=== PATIENT | male | born 1955 | race Two or more races ===

== ENCOUNTER 2020-11-19 13:43 | Emergency (ER) | payer MEDICARE, OTHER ==
[~2020-11-19] VITALS: Ht 188 cm; Wt 109.0 kg
[2020-11-19] MEDS ORDERED: MORPHINE SULFATE 4 MG/ML CPJ (NOT FOR IM USE) IV STA (15:54)
[2020-11-19] MEDS ORDERED: ONDANSETRON HCL 4MG/2ML INJ IV STA (15:54)
[2020-11-19] MEDS ORDERED: SODIUM CHLORIDE 0.9% 1,000 ML IV ONE (16:00)
[2020-11-19 16:23] LABS: CLARITY URINE CLOUDY (CLEAR); COLOR URINE YELLOW (YELLOW); KETONES URINE TRACE (NEGATIVE); LEUKOCYTE ESTERASE URINE 2+ (NEGATIVE); NITRITE URINE POSITIVE (NEGATIVE); OCCULT BLOOD URINE NEGATIVE (NEGATIVE); PH URINE 6.5 (4.5-8.0); PROTEIN URINE 1+ (NEGATIVE); SPECIFIC GRAVITY URINE 1.024 (1.005-1.030)
[2020-11-19 16:26] LABS: EOSINOPHILS % 1.2 % (0.0-5.0); HEMATOCRIT. 41.8 % (42.0-52.0); LYMPHOCYTES % 17.9 % (20.0-50.0); MEAN CORPUSCULAR HEMOGLOBIN 28.7 pg (28.0-32.0); MEAN CORPUSCULAR VOLUME 85.4 fL (80.0-94.0); MONOCYTES % 6.2 % (2.0-8.0); NEUTROPHILS % 73.7 % (40.0-76.0); PLATELET 218 x1000/uL (130-400); RED BLOOD CELL COUNT 4.89 mill/uL (4.7-6.1); RED CELL DISTRIBUTION WIDTH 13.9 % (11.6-14.6)
[2020-11-19] MEDS ORDERED: TETANUS, DIPHTHERIA, PERTUSSIS VAC/PF 0.5ML (>7YR OLD) IM ONE (16:30)
[2020-11-19 16:32] LABS: CHLORIDE 104 mEq/L (98-107)
[2020-11-19 16:39] LABS: PROTHROMBIN TIME 10.5 sec (9.6-11.0)
[2020-11-19] MEDS ORDERED: CLONIDINE 0.1MG TABLET PO ONE (18:45)
[2020-11-19 19:06] VITALS: BP 178/99
[2020-11-19] MEDS ORDERED: IOHEXOL-300 100 ML BOTTLE ONE (23:35)
== END 2020-11-19 19:08 | disposition home or self-care (01) ==
LOC: ER 13:43
DX: S09.8XXA Other specified injuries of head, initial encounter (principal); S69.82XA Other specified injuries of left wrist, hand and finger(s), initial encounter; S69.81XA Other specified injuries of right wrist, hand and finger(s), initial encounter; M54.5 Low back pain; V49.49XA Driver injured in collision with other motor vehicles in traffic accident, initial encounter; Y93.89 Activity, other specified; Y92.488 Other paved roadways as the place of occurrence of the external cause; N39.0 Urinary tract infection, site not specified; R16.0 Hepatomegaly, not elsewhere classified; I10 Essential (primary) hypertension; E11.9 Type 2 diabetes mellitus without complications; Z85.9 Personal history of malignant neoplasm, unspecified; Z23 Encounter for immunization
CPT/HCPCS: 36415; 70450; 70486; 71045; 71260; 72125; 73130; 74177; 80053; 81003; 83690; 84484; 85025; 85610; 86850; 86900; 86901; 87077; 87086; 87186; 90471; 90715; 93005; 96361; 96374; 96375; 99285; J2270; J2405; J7030; Q9967